=== PATIENT | female | born 1940 | race Caucasian/White ===

== ENCOUNTER 2016-06-18 16:32 | Inpatient (IN) | payer OTHER, BC ==
[~2016-06-18] VITALS: Ht 165.1 cm; Wt 76.0 kg
[~2016-06-18 16:32] MED LIST: ADULT LOW DOSE81 M1 PO; ADVAIR 250/501 DISK IH; ADVAIR 500/501 DISK IH; ALBUTEROL SULF8.5 GM IH; ALKA-SELTZER G1 EAC1 PO; AUGMENTIN875 MG PO; B-121000 MC2 PO; CALCIUM 600 +1 EAC1 PO; CALCIUM 600 +1 EAC3 PO; CALCIUM 600 +1 EAC4 PO; CALCIUM 600 +1 EAC9 PO; CALCIUM 600+D1 EAC1 PO; CALCIUM500 M4 PO; CEFTIN500 MG PO; CEFUROXIME500 MG PO; CENTRUM SILVER1 EAC3 PO; CYANOCOBALAM1000 MCG PO; CYANOCOBALAMI100 MCG PO; DIOVAN80 MG PO; DYAZIDE, MA1 CAPSULE PO; DuoNeb IH; Dyazide, Maxzide 37. PO; EFFIENT10 MG PO; GLUCOPHAGE500 MG PO; HUMALOG100 UNIT/2 SC; IBUPROFEN800 MG PO; INDOCIN50 MG PO; INDOMETHACIN50 MG PO; LANSOPRAZOLE30 MG PO; LANTUS 10100 UNITS/ SC; LANTUS 3 M100 UNITS1 SC; LANTUS100 UNIT/1 SQ; LASIX20 MG PO; LEXAPRO10 MG PO; LIDODERM 5% P1 PATCH TD; LIPITOR10 MG PO; LISINOPRIL10 MG PO; LOPRESSOR50 MG PO; LOW DOSE ASPIRI81 M1 PO; LOW DOSE ASPIRI81 M2 PO; Lopressor PO; MORGIDOX100 MG PO; MULTIVITAMIN1 EAC2 PO; MYRBETRIQ50 MG PO; NOVOLOG 10100 UNITS/ SC; NOVOLOG PE100 UNITS/ SC; NOVOLOG100 UNIT/2 SQ; PRAVASTATIN SOD10 MG PO; PREDNISONE10 MG PO; PREDNISONE20 MG PO; PREVACID30 MG PO; PROTONIX40 MG PO; PROVENTIL HFA6.7 GM IH; PROVENTIL,2.5 MG/0.5 AEROSOL; Proventil,Ventolin H IH; REQUIP1 MG PO; ROPINIROLE HC0.25 MG PO; Rocephin IV; SENNA8.6 M1 PO; SENNA8.6 MG PO; SENOKOT,SENN1 TABLET PO; SINGULAIR10 MG PO; SPIRIVA1 INHALATI IH; STOOL SOFTENER100 MG PO; Senokot S,Pericolace PO; THEO-24 100 MG100 MG PO; THEO-24400 MG PO; THEOPHYLLINE400 MG PO; THERAGRAN1 TABLET PO; TRAMADOL HCL50 MG PO; TYLENOL REGULA325 MG PO; VENTOLIN HFA18 GM IH; VITAMIN B-1250 MC3 PO; VITAMIN B-6100 MG PO; VITAMIN B12 100MCG PO; VITAMIN B12 PO; VITAMIN B12-FO1 EACH PO; VITAMIN B6 PO; VITAMIN D3400 UNI1 PO; VITAMIN D400 UNI1 PO; Vancomycin IV; Vicodin,Norco 5/325 PO; Vitamin D PO; ZESTRIL2.5 MG PO; ZOCOR10 MG PO; Zocor PO
[2016-06-18 17:56] LABS: EOSINOPHIL (%) 0.7 % (0-5); EOSINOPHIL COUNT 0.1 K/uL (0-0.3); HEMATOCRIT 40.1 % (36.0-46.0); IMMATURE GRANULOCYTE (%) 1.5 % (0.0-0.7); MCH 26.9 PG (29.0-34.0); MCHC 32.4 G/DL (30.0-36.0); MEAN PLAT.VOLUME 11.1 uM^3 (9.5-12.4); MONOCYTE COUNT 0.7 K/uL (0-0.8); NEUTROPHIL (%) 77.1 % (45-76); PLATELET COUNT 283 K/uL (156-360); RBC DIS.WIDTH-CV 15.3 % (11.8-14.6); RBC DIS.WIDTH-SD 46.1 % (39-53); RED BLOOD COUNT 4.83 M/uL (3.80-5.20)
[2016-06-18 18:02] LABS: CHLORIDE 103 mEq/L (99-109); POTASSIUM 4.2 mEq/L (3.7-5.4); SODIUM 142 mEq/L (136-147)
[2016-06-18 18:04] LABS: GLUCOSE 248 mg/dL (70-99)
[2016-06-18 18:05] LABS: ANION GAP 15 MEQ/L (2-14)
[2016-06-18 18:06] LABS: TOTAL BILIRUBIN 0.4 mg/dL (0.0-1.0)
[2016-06-18 18:07] LABS: ALKALINE PHOSPHATASE 82 IU/L (3-129)
[2016-06-18 18:08] LABS: GFR ESTIMATE (CALCULATED) 51 mL/min/
[2016-06-18 18:09] LABS: UREA NITROGEN (BUN) 34 mg/dL (9-23)
[2016-06-18 18:13] LABS: TROP-I INTERPRETATION NEGATIVE; TROPONIN-I 0.05 ng/mL (0.0-0.30)
[2016-06-18] MEDS ORDERED: BENICAR5 MG PO (18:55)
[2016-06-18] MEDS ORDERED: PRAVACHOL10 MG PO (18:55)
[2016-06-18] MEDS ORDERED: LYRICA50 MG PO (18:55)
[2016-06-18] MEDS ORDERED: PROVENTIL,2.5 MG/3 M IH (18:56)
[2016-06-18 19:27] LABS: INTER. NORMALIZED RATIO 1.1; PTT 26.8 (25-32)
[2016-06-18 22:15] VITALS: BP 157/76
[2016-06-18 22:46] LABS: POINT-OF-CARE METER ID UU14174216
[2016-06-19] VITALS (7 sets, daily range): BP systolic 112–168; BP diastolic 56–80
[2016-06-19 01:53] LABS: METH RESISTANT S AUREUS PCR NEGATIVE (NEGATIVE)
[2016-06-19 02:06] LABS: PROBE CHECK PASS; SPECIMEN PROCESSING CONTROL PASS
[2016-06-19 02:41] LABS: TROP-I INTERPRETATION NEGATIVE; TROPONIN-I 0.08 ng/mL (0.0-0.30)
[2016-06-19 09:11] LABS: HEMATOCRIT 42.3 % (36.0-46.0); MCHC 31.4 G/DL (30.0-36.0); MEAN PLAT.VOLUME 11.3 uM^3 (9.5-12.4); PLATELET COUNT 273 K/uL (156-360); RBC DIS.WIDTH-CV 15.8 % (11.8-14.6); RBC DIS.WIDTH-SD 49.2 % (39-53); RED BLOOD COUNT 4.92 M/uL (3.80-5.20); WHITE BLOOD COUNT 10.7 K/uL (4.1-10.2)
[2016-06-19 09:34] LABS: ANION GAP 11 MEQ/L (2-14); CHLORIDE 105 MEQ/L (99-109); GFR ESTIMATE (CALCULATED) > 59 mL/min/; POTASSIUM 3.6 MEQ/L (3.7-5.4); SAMPLE HEMOLYSIS CHECK 0; SAMPLE ICTERIC CHECK 0; SAMPLE LIPEMIA CHECK 0; SODIUM 146 MEQ/L (136-147); UREA NITROGEN (BUN) 24 mg/dL (9-23)
[2016-06-19 09:35] LABS: GLUCOSE 46 mg/dL (70-99)
[2016-06-19 09:36] LABS: TROP-I INTERPRETATION NEGATIVE; TROPONIN-I 0.12 ng/mL (0.0-0.30)
[2016-06-20] VITALS: BP 139/71
[2016-06-20 00:10] VITALS: BP 119/56
[2016-06-20 04:57] VITALS: BP 126/55
[2016-06-20 09:00] VITALS: BP 123/88
[2016-06-20 09:13] LABS: ANION GAP 12 MEQ/L (2-14); CHLORIDE 102 MEQ/L (99-109); GFR ESTIMATE (CALCULATED) 46 mL/min/; SAMPLE HEMOLYSIS CHECK 0; SAMPLE ICTERIC CHECK 0; SAMPLE LIPEMIA CHECK 0; SODIUM 140 MEQ/L (136-147); UREA NITROGEN (BUN) 35 mg/dL (9-23)
[2016-06-20 09:14] LABS: GLUCOSE 323 mg/dL (70-99); POTASSIUM 4.8 MEQ/L (3.7-5.4)
[2016-06-20 12:00] VITALS: BP 157/67
[2016-06-20 19:40] VITALS: BP 129/81
[2016-06-21] VITALS (8 sets, daily range): BP systolic 96–166; BP diastolic 55–86
[2016-06-21 06:33] LABS: HEMATOCRIT 39.1 % (36.0-46.0); MCH 26.8 PG (29.0-34.0); MCHC 31.5 G/DL (30.0-36.0); MCV 85.2 FL (83-99); MEAN PLAT.VOLUME 11.9 uM^3 (9.5-12.4); PLATELET COUNT 259 K/uL (156-360); RBC DIS.WIDTH-CV 15.7 % (11.8-14.6); RED BLOOD COUNT 4.59 M/uL (3.80-5.20); WHITE BLOOD COUNT 13.9 K/uL (4.1-10.2)
[2016-06-21 07:08] LABS: ANION GAP 9 MEQ/L (2-14); CHLORIDE 107 MEQ/L (99-109); GFR ESTIMATE (CALCULATED) 42 mL/min/; GLUCOSE 227 mg/dL (70-99); POTASSIUM 4.2 MEQ/L (3.7-5.4); SAMPLE HEMOLYSIS CHECK 0; SAMPLE ICTERIC CHECK 0; SAMPLE LIPEMIA CHECK 0; SODIUM 141 MEQ/L (136-147); UREA NITROGEN (BUN) 39 mg/dL (9-23)
[2016-06-21 08:44] LABS: POINT-OF-CARE METER ID UU13113781
[2016-06-21 10:43] LABS: POINT-OF-CARE METER ID UU13113781
[2016-06-21 16:01] LABS: POINT-OF-CARE METER ID UU13113781
[2016-06-22 05:00] VITALS: BP 152/85
[2016-06-22 06:17] LABS: EOSINOPHIL (%) 0.2 % (0-5); HEMATOCRIT 41.7 % (36.0-46.0); IMMATURE GRANULOCYTE (%) 1.4 % (0.0-0.7); IMMATURE GRANULOCYTE COUNT 0.2 K/uL; LYMPHOCYTE COUNT 1.5 K/uL (1.0-2.8); MCH 27.1 PG (29.0-34.0); MCHC 31.9 G/DL (30.0-36.0); MCV 84.9 FL (83-99); MEAN PLAT.VOLUME 11.5 uM^3 (9.5-12.4); MONOCYTE (%) 6.2 % (3-12); MONOCYTE COUNT 0.7 K/uL (0-0.8); NEUTROPHIL (%) 79.7 % (45-76); NEUTROPHIL COUNT 9.6 K/uL (1.8-6.4); PLATELET COUNT 242 K/uL (156-360); RBC DIS.WIDTH-CV 15.9 % (11.8-14.6); RBC DIS.WIDTH-SD 48.6 % (39-53); RED BLOOD COUNT 4.91 M/uL (3.80-5.20)
[2016-06-22 06:46] LABS: ANION GAP 9 MEQ/L (2-14); CHLORIDE 106 MEQ/L (99-109); GFR ESTIMATE (CALCULATED) 31 mL/min/; GLUCOSE 158 mg/dL (70-99); POTASSIUM 4.7 MEQ/L (3.7-5.4); SAMPLE HEMOLYSIS CHECK 0; SAMPLE ICTERIC CHECK 0; SAMPLE LIPEMIA CHECK 0; SODIUM 142 MEQ/L (136-147); UREA NITROGEN (BUN) 45 mg/dL (9-23)
[2016-06-22 07:30] VITALS: BP 113/65
[2016-06-22 11:16] LABS: UR CREATININE CONCENTRATION 45.9 MG/DL
[2016-06-22 12:01] VITALS: BP 143/65
[2016-06-22 19:00] VITALS: BP 119/56
[2016-06-22 23:52] VITALS: BP 126/58
[2016-06-23 03:15] VITALS: BP 138/67
[2016-06-23 03:25] LABS: POINT-OF-CARE METER ID UU13113698
[2016-06-23 05:17] LABS: POINT-OF-CARE METER ID UU13113698
[2016-06-23 06:48] LABS: ANION GAP 10 MEQ/L (2-14); CHLORIDE 102 MEQ/L (99-109); GFR ESTIMATE (CALCULATED) 33 mL/min/; GLUCOSE 287 mg/dL (70-99); POTASSIUM 5.2 MEQ/L (3.7-5.4); SAMPLE HEMOLYSIS CHECK 0; SAMPLE ICTERIC CHECK 0; SAMPLE LIPEMIA CHECK 0; SODIUM 139 MEQ/L (136-147); UREA NITROGEN (BUN) 49 mg/dL (9-23)
[2016-06-23 07:48] LABS: POINT-OF-CARE METER ID UU14174216; POINT-OF-CARE USER ID NUTSLF44
[2016-06-23 08:59] VITALS: BP 154/78
[2016-06-23 11:24] LABS: HEMATOCRIT 40.8 % (36.0-46.0); MCH 26.1 PG (29.0-34.0); MCHC 30.9 G/DL (30.0-36.0); MCV 84.6 FL (83-99); MEAN PLAT.VOLUME 11.9 uM^3 (9.5-12.4); PLATELET COUNT 251 K/uL (156-360); RBC DIS.WIDTH-CV 16.1 % (11.8-14.6); RED BLOOD COUNT 4.82 M/uL (3.80-5.20); WHITE BLOOD COUNT 11.4 K/uL (4.1-10.2)
[2016-06-23 11:38] LABS: POINT-OF-CARE METER ID UU14174216; POINT-OF-CARE USER ID NUTSLF44
[2016-06-23 11:44] LABS: EOSINOPHIL (%) 0.1 % (0-5); IMMATURE GRANULOCYTE (%) 1.5 % (0.0-0.7); IMMATURE GRANULOCYTE COUNT 0.2 K/uL; LYMPHOCYTE COUNT 1.2 K/uL (1.0-2.8); MONOCYTE (%) 7.9 % (3-12); MONOCYTE COUNT 0.9 K/uL (0-0.8); NEUTROPHIL (%) 80.1 % (45-76); NEUTROPHIL COUNT 9.2 K/uL (1.8-6.4)
[2016-06-23 11:51] LABS: POINT-OF-CARE METER ID UU13113698
[2016-06-23 16:20] VITALS: BP 148/72
[2016-06-23 17:38] LABS: POINT-OF-CARE METER ID UU14174216; POINT-OF-CARE USER ID NUTSLF44
[2016-06-23 19:30] VITALS: BP 111/56
[2016-06-23 21:07] LABS: POINT-OF-CARE METER ID UU14174216
[2016-06-23 23:30] VITALS: BP 128/66
[2016-06-24 03:56] VITALS: BP 131/76
[2016-06-24 04:15] LABS: ADD MIUA? NO; BILIRUBIN NEGATIVE; BLOOD NEGATIVE; COLOR YELLOW ((YELLOW)); GLUCOSE (STRIP) 250; KETONES NEGATIVE; LEUKOCYTES NEGATIVE; NITRITE NEGATIVE; PH, URINE 6.5 (5-8); PROTEIN (STRIP) NEGATIVE; SPECIFIC GRAVITY 1.014 (1.000-1.030); UROBILINOGEN 0.2 MG/DL (0.2-1.0)
[2016-06-24 06:47] LABS: HEMATOCRIT 39.3 % (36.0-46.0); MCH 26.2 PG (29.0-34.0); MCV 84.5 FL (83-99); MEAN PLAT.VOLUME 11.4 uM^3 (9.5-12.4); PLATELET COUNT 242 K/uL (156-360); RBC DIS.WIDTH-CV 16.4 % (11.8-14.6); RBC DIS.WIDTH-SD 49.4 % (39-53); RED BLOOD COUNT 4.65 M/uL (3.80-5.20); WHITE BLOOD COUNT 12.8 K/uL (4.1-10.2)
[2016-06-24 07:12] LABS: ANION GAP 7 MEQ/L (2-14); CHLORIDE 105 MEQ/L (99-109); GFR ESTIMATE (CALCULATED) 36 mL/min/; GLUCOSE 233 mg/dL (70-99); POTASSIUM 5.6 MEQ/L (3.7-5.4); SAMPLE HEMOLYSIS CHECK 0; SAMPLE ICTERIC CHECK 0; SAMPLE LIPEMIA CHECK 0; SODIUM 138 MEQ/L (136-147); UREA NITROGEN (BUN) 48 mg/dL (9-23)
[2016-06-24 07:19] VITALS: BP 138/68
[2016-06-24 07:23] LABS: EOSINOPHIL (%) 0.1 % (0-5); IMMATURE GRANULOCYTE (%) 1.6 % (0.0-0.7); IMMATURE GRANULOCYTE COUNT 0.2 K/uL; LYMPHOCYTE COUNT 0.9 K/uL (1.0-2.8); MONOCYTE (%) 5.2 % (3-12); MONOCYTE COUNT 0.7 K/uL (0-0.8); NEUTROPHIL (%) 85.8 % (45-76)
[2016-06-24 07:36] LABS: POINT-OF-CARE METER ID UU13113698
[2016-06-24 11:31] LABS: POINT-OF-CARE METER ID UU13113698
[2016-06-24 11:55] VITALS: BP 146/66
[2016-06-24 15:16] VITALS: BP 161/67
[2016-06-25] VITALS: BP 168/74
[2016-06-25 04:00] VITALS: BP 145/70
[2016-06-25 06:41] LABS: HEMATOCRIT 41.6 % (36.0-46.0); MCH 27.3 PG (29.0-34.0); MCHC 32.2 G/DL (30.0-36.0); MCV 84.7 FL (83-99); MEAN PLAT.VOLUME 12.1 uM^3 (9.5-12.4); PLATELET COUNT 274 K/uL (156-360); RBC DIS.WIDTH-CV 16.4 % (11.8-14.6); RBC DIS.WIDTH-SD 49.4 % (39-53); RED BLOOD COUNT 4.91 M/uL (3.80-5.20); WHITE BLOOD COUNT 13.7 K/uL (4.1-10.2)
[2016-06-25 07:12] LABS: ANION GAP 10 MEQ/L (2-14); CHLORIDE 105 MEQ/L (99-109); GFR ESTIMATE (CALCULATED) 46 mL/min/; GLUCOSE 227 mg/dL (70-99); POTASSIUM 5.2 MEQ/L (3.7-5.4); SAMPLE HEMOLYSIS CHECK 0; SAMPLE ICTERIC CHECK 0; SAMPLE LIPEMIA CHECK 0; SODIUM 141 MEQ/L (136-147); UREA NITROGEN (BUN) 39 mg/dL (9-23)
[2016-06-25 08:03] LABS: POINT-OF-CARE METER ID UU13113698
[2016-06-25 08:32] VITALS: BP 140/75
[2016-06-25 11:21] LABS: POINT-OF-CARE METER ID UU13113698
[2016-06-25 12:40] VITALS: BP 40/90
[2016-06-25] MEDS ORDERED: CARDIZEM CD,CA240 MG PO (12:40)
[2016-06-25] MEDS ORDERED: ELIQUIS5 MG PO (12:40)
[2016-06-28 10:34] LABS: POINT-OF-CARE METER ID UU13113698
[2016-06-28 10:36] LABS: POINT-OF-CARE METER ID UU13113781
== END 2016-06-25 15:29 | disposition home or self-care (01) | DRG 189 ==
LOC: EME 16:32 → EDOF 21:02 → 4EAST 21:02
PROVIDERS: Emergency Medicine; Hospitalist; Internal Medicine; Internal Medicine Nephrology
DX: J96.21 Acute and chronic respiratory failure with hypoxia (principal); J18.9 Pneumonia, unspecified organism; N17.9 Acute kidney failure, unspecified; J44.1 Chronic obstructive pulmonary disease with (acute) exacerbation; I48.91 Unspecified atrial fibrillation; E86.0 Dehydration; I25.10 Atherosclerotic heart disease of native coronary artery without angina pectoris; J96.11 Chronic respiratory failure with hypoxia; E11.65 Type 2 diabetes mellitus with hyperglycemia; I45.10 Unspecified right bundle-branch block; F32.9 Major depressive disorder, single episode, unspecified; G62.9 Polyneuropathy, unspecified; R00.0 Tachycardia, unspecified; E78.5 Hyperlipidemia, unspecified; I35.0 Nonrheumatic aortic (valve) stenosis; J40 Bronchitis, not specified as acute or chronic; E11.22 Type 2 diabetes mellitus with diabetic chronic kidney disease; N18.3 Chronic kidney disease, stage 3 (moderate); E87.5 Hyperkalemia; I13.10 Hypertensive heart and chronic kidney disease without heart failure, with stage 1 through stage 4 chronic kidney disease, or unspecified chronic kidney disease; J98.09 Other diseases of bronchus, not elsewhere classified; Z85.038 Personal history of other malignant neoplasm of large intestine; Z99.81 Dependence on supplemental oxygen; Z79.82 Long term (current) use of aspirin; Z95.5 Presence of coronary angioplasty implant and graft
CPT/HCPCS: 71010; 71020; 71275; 76770; 80048; 80053; 81003; 82570; 82948; 83880; 83935; 84300; 84443; 84484; 85025; 85027; 85610; 85730; 87641; 93005; 94640; 94640 76; 94760; 94799; 99202; 99281; 99285; J1815; J1940; J1956; J7030; J7512

== ENCOUNTER 2016-06-26 11:28 | Inpatient (IN) | payer OTHER, BC ==
[~2016-06-26] VITALS: Ht 165.1 cm; Wt 75.5 kg
[~2016-06-26 11:28] MED LIST changes: +BENICAR5 MG PO; +CARDIZEM CD,CA240 MG PO; +ELIQUIS5 MG PO; +LYRICA50 MG PO; +PRAVACHOL10 MG PO; +PROVENTIL,2.5 MG/3 M IH
[2016-06-26 12:05] LABS: EOSINOPHIL (%) 0.1 % (0-5); HEMATOCRIT 42.2 % (36.0-46.0); IMMATURE GRANULOCYTE (%) 0.7 % (0.0-0.7); IMMATURE GRANULOCYTE COUNT 1.8 K/uL; LYMPHOCYTE COUNT 0.7 K/uL (1.0-2.8); MCH 26.9 PG (29.0-34.0); MCHC 32.5 G/DL (30.0-36.0); MCV 82.9 FL (83-99); MEAN PLAT.VOLUME 11.4 uM^3 (9.5-12.4); MONOCYTE (%) 4.8 % (3-12); MONOCYTE COUNT 1.2 K/uL (0-0.8); NEUTROPHIL (%) 91.7 % (45-76); NEUTROPHIL COUNT 22.8 K/uL (1.8-6.4); PLATELET COUNT 264 K/uL (156-360); RBC DIS.WIDTH-CV 16.3 % (11.8-14.6); RBC DIS.WIDTH-SD 48.8 % (39-53); RED BLOOD COUNT 5.09 M/uL (3.80-5.20)
[2016-06-26 12:06] LABS: WHITE BLOOD COUNT 24.9 K/uL (4.1-10.2)
[2016-06-26 12:12] LABS: CHLORIDE 105 mEq/L (99-109); POTASSIUM 5.2 mEq/L (3.7-5.4); SODIUM 141 mEq/L (136-147)
[2016-06-26 12:15] LABS: ANION GAP 11 MEQ/L (2-14); GLUCOSE 86 mg/dL (70-99)
[2016-06-26 12:16] LABS: INTER. NORMALIZED RATIO 1.1; PROTHROMBIN TIME 10.9 (9.2-11.2); PTT 28.7 (25-32)
[2016-06-26 12:17] LABS: GFR ESTIMATE (CALCULATED) 42 mL/min/
[2016-06-26 12:18] LABS: UREA NITROGEN (BUN) 41 mg/dL (9-23)
[2016-06-26 12:20] LABS: TROP-I INTERPRETATION INDETERMINATE; TROPONIN-I 0.35 ng/mL (0.0-0.30)
[2016-06-26 12:42] LABS: HEMATOLOGY COMMENT 1 SMEAR COMPATIBLE; USER ID LYM
[2016-06-26 14:06] LABS: MAGNESIUM 1.6 mg/dL (1.3-2.7)
[2016-06-26 15:51] LABS: POINT-OF-CARE METER ID UU13113747
[2016-06-26 17:05] VITALS: BP 99/64
[2016-06-26 18:52] LABS: ADD MIUA? NO; BILIRUBIN NEGATIVE; BLOOD NEGATIVE; COLOR YELLOW ((YELLOW)); GLUCOSE (STRIP) NEGATIVE; KETONES NEGATIVE; LEUKOCYTES NEGATIVE; NITRITE NEGATIVE; PH, URINE 5.5 (5-8); PROTEIN (STRIP) NEGATIVE; SPECIFIC GRAVITY 1.006 (1.000-1.030); UCUL ADDED? NO; UROBILINOGEN 0.2 MG/DL (0.2-1.0)
[2016-06-26 19:20] LABS: TROP-I INTERPRETATION INDETERMINATE; TROPONIN-I 0.41 ng/mL (0.0-0.30)
[2016-06-26 20:48] VITALS: BP 113/65
[2016-06-27] VITALS (8 sets, daily range): BP systolic 97–198; BP diastolic 44–58
[2016-06-27 01:08] LABS: TROP-I INTERPRETATION NEGATIVE; TROPONIN-I 0.25 ng/mL (0.0-0.30)
[2016-06-27 07:38] LABS: MCH 27.3 PG (29.0-34.0); MCV 85.3 FL (83-99); MEAN PLAT.VOLUME 11.7 uM^3 (9.5-12.4); PLATELET COUNT 213 K/uL (156-360); RBC DIS.WIDTH-CV 16.6 % (11.8-14.6); RBC DIS.WIDTH-SD 51.1 % (39-53); RED BLOOD COUNT 4.69 M/uL (3.80-5.20)
[2016-06-27 07:59] LABS: WHITE BLOOD COUNT 14.3 K/uL (4.1-10.2)
[2016-06-27 08:08] LABS: ANION GAP 8 MEQ/L (2-14); CHLORIDE 103 MEQ/L (99-109); GFR ESTIMATE (CALCULATED) 46 mL/min/; SAMPLE HEMOLYSIS CHECK 0; SAMPLE ICTERIC CHECK 0; SAMPLE LIPEMIA CHECK 0; SODIUM 140 MEQ/L (136-147); UREA NITROGEN (BUN) 43 mg/dL (9-23)
[2016-06-27 08:16] LABS: GLUCOSE 45 mg/dL (70-99)
[2016-06-27 08:24] LABS: POINT-OF-CARE METER ID UU13113698
[2016-06-27 10:51] LABS: POINT-OF-CARE METER ID UU13113698
[2016-06-28 04:50] VITALS: BP 118/54
[2016-06-28 06:57] LABS: HEMATOCRIT 37.1 % (36.0-46.0); MCH 26.7 PG (29.0-34.0); MCHC 31.3 G/DL (30.0-36.0); MCV 85.3 FL (83-99); MEAN PLAT.VOLUME 12.1 uM^3 (9.5-12.4); PLATELET COUNT 179 K/uL (156-360); RBC DIS.WIDTH-CV 16.3 % (11.8-14.6); RBC DIS.WIDTH-SD 50.4 % (39-53); RED BLOOD COUNT 4.35 M/uL (3.80-5.20)
[2016-06-28 07:55] LABS: ANION GAP 8 MEQ/L (2-14); CHLORIDE 99 MEQ/L (99-109); SAMPLE HEMOLYSIS CHECK 0; SAMPLE ICTERIC CHECK 0; SAMPLE LIPEMIA CHECK 0; SODIUM 135 MEQ/L (136-147); UREA NITROGEN (BUN) 55 mg/dL (9-23)
[2016-06-28 07:58] LABS: GFR ESTIMATE (CALCULATED) 26 mL/min/; GLUCOSE 340 mg/dL (70-99); POTASSIUM 5.6 MEQ/L (3.7-5.4)
[2016-06-28 08:45] VITALS: BP 130/62
[2016-06-28 11:45] VITALS: BP 128/60
[2016-06-28 12:58] LABS: CHLORIDE 103 mEq/L (99-109); POTASSIUM 4.6 mEq/L (3.7-5.4)
[2016-06-28 12:59] LABS: SODIUM 143 mEq/L (136-147)
[2016-06-28 13:01] LABS: ANION GAP 13 MEQ/L (2-14); GLUCOSE 166 mg/dL (70-99)
[2016-06-28 13:03] LABS: GFR ESTIMATE (CALCULATED) 29 mL/min/
[2016-06-28 13:04] LABS: UREA NITROGEN (BUN) 55 mg/dL (9-23)
[2016-06-28 19:25] VITALS: BP 145/68
[2016-06-28 21:41] LABS: POINT-OF-CARE METER ID UU13113698
[2016-06-28 23:00] VITALS: BP 137/60
[2016-06-29 04:26] VITALS: BP 141/67
[2016-06-29 06:52] LABS: HEMATOCRIT 39.4 % (36.0-46.0); MCH 27.3 PG (29.0-34.0); MCHC 31.5 G/DL (30.0-36.0); MCV 86.8 FL (83-99); MEAN PLAT.VOLUME 12.1 uM^3 (9.5-12.4); PLATELET COUNT 203 K/uL (156-360); RBC DIS.WIDTH-CV 16.4 % (11.8-14.6); RBC DIS.WIDTH-SD 52.2 % (39-53); RED BLOOD COUNT 4.54 M/uL (3.80-5.20); WHITE BLOOD COUNT 8.7 K/uL (4.1-10.2)
[2016-06-29 07:31] LABS: ANION GAP 11 MEQ/L (2-14); CHLORIDE 106 MEQ/L (99-109); GFR ESTIMATE (CALCULATED) 36 mL/min/; SAMPLE HEMOLYSIS CHECK 0; SAMPLE ICTERIC CHECK 0; SAMPLE LIPEMIA CHECK 0; SODIUM 142 MEQ/L (136-147); UREA NITROGEN (BUN) 51 mg/dL (9-23)
[2016-06-29 07:34] LABS: GLUCOSE 259 mg/dL (70-99); POTASSIUM 5.6 MEQ/L (3.7-5.4)
[2016-06-29 07:52] LABS: POINT-OF-CARE METER ID UU13113698
[2016-06-29 08:07] VITALS: BP 154/90
[2016-06-29] MEDS ORDERED: PREDNISONE20 MG PO (08:13)
[2016-06-29 11:28] VITALS: BP 142/76
[2016-06-29 15:59] VITALS: BP 145/70
[2016-06-29 16:08] LABS: POINT-OF-CARE METER ID UU13113698
[2016-06-29 19:36] VITALS: BP 142/66
[2016-06-29 23:21] VITALS: BP 111/67
[2016-06-30 03:35] VITALS: BP 136/85
[2016-06-30 07:06] LABS: ANION GAP 9 MEQ/L (2-14); CHLORIDE 105 MEQ/L (99-109); POTASSIUM 5.3 MEQ/L (3.7-5.4); SAMPLE HEMOLYSIS CHECK 0; SAMPLE ICTERIC CHECK 0; SAMPLE LIPEMIA CHECK 0; SODIUM 142 MEQ/L (136-147)
[2016-06-30 07:11] LABS: GFR ESTIMATE (CALCULATED) 42 mL/min/; GLUCOSE 182 mg/dL (70-99); UREA NITROGEN (BUN) 49 mg/dL (9-23)
[2016-06-30 07:24] LABS: EOSINOPHIL (%) 0.6 % (0-5); EOSINOPHIL COUNT 0.1 K/uL (0-0.3); HEMATOCRIT 41.9 % (36.0-46.0); IMMATURE GRANULOCYTE (%) 0.6 % (0.0-0.7); IMMATURE GRANULOCYTE COUNT 0.1 K/uL; MCH 27.4 PG (29.0-34.0); MCV 88.2 FL (83-99); MEAN PLAT.VOLUME 12.2 uM^3 (9.5-12.4); NEUTROPHIL COUNT 10.3 K/uL (1.8-6.4); PLATELET COUNT 250 K/uL (156-360); RBC DIS.WIDTH-CV 16.6 % (11.8-14.6); RBC DIS.WIDTH-SD 53.6 % (39-53); RED BLOOD COUNT 4.75 M/uL (3.80-5.20)
[2016-06-30 07:29] VITALS: BP 110/64
[2016-06-30 07:30] LABS: WHITE BLOOD COUNT 12.4 K/uL (4.1-10.2)
[2016-06-30 07:48] LABS: POINT-OF-CARE METER ID UU13113698
== END 2016-06-30 10:10 | disposition designated cancer center or children's hospital, planned readmission (85) | DRG 309 ==
LOC: EME → EDBD 11:28 → 4EAST 12:46 → EDOF 12:46 → 4EAST 16:01
PROVIDERS: Emergency Medicine; Hospitalist; Internal Medicine; Physician Assistant Medical
DX: I48.0 Paroxysmal atrial fibrillation (principal); J44.1 Chronic obstructive pulmonary disease with (acute) exacerbation; J96.11 Chronic respiratory failure with hypoxia; N17.9 Acute kidney failure, unspecified; E87.5 Hyperkalemia; I13.0 Hypertensive heart and chronic kidney disease with heart failure and stage 1 through stage 4 chronic kidney disease, or unspecified chronic kidney disease; Z99.81 Dependence on supplemental oxygen; I49.5 Sick sinus syndrome; I50.32 Chronic diastolic (congestive) heart failure; N18.3 Chronic kidney disease, stage 3 (moderate); F17.210 Nicotine dependence, cigarettes, uncomplicated; E78.5 Hyperlipidemia, unspecified; I25.10 Atherosclerotic heart disease of native coronary artery without angina pectoris; J45.909 Unspecified asthma, uncomplicated; I45.10 Unspecified right bundle-branch block; R26.2 Difficulty in walking, not elsewhere classified; R74.8 Abnormal levels of other serum enzymes; J45.901 Unspecified asthma with (acute) exacerbation; I35.0 Nonrheumatic aortic (valve) stenosis; E11.65 Type 2 diabetes mellitus with hyperglycemia; E11.22 Type 2 diabetes mellitus with diabetic chronic kidney disease; E66.9 Obesity, unspecified; Z68.27 Body mass index [BMI] 27.0-27.9, adult
CPT/HCPCS: 71010; 80048; 80048 91; 81003; 82948; 83735; 83880; 84484; 85025; 85027; 85610; 85730; 93005; 94640; 94640 76; 94799; 97530 GO; 97530 GP; 99202; 99281; 99285; J0696; J1815; J1940; J7030; J7050; J7512

== ENCOUNTER 2016-07-11 07:38 | Inpatient (IN) | payer OTHER, BC ==
[~2016-07-11] VITALS: Ht 160 cm; Wt 79.7 kg
[2016-07-11 07:59] LABS: BASE EXCESS 8.9 mEq/L (-3 to +3); BICARBONATE 35.3 mEq/L (22-26); CARBOXY HGB 1.8 % (0-5); METHEMOGLOBIN 1.1 % (0-1.5); PCO2 57 mm Hg (35-45); PO2 98 mm Hg (80-100)
[2016-07-11 08:00] LABS: COMMENTS - BLOOD GASES C+; CONTINUOUS POS AIRWAY PRESSURE 5 cm H2O; DEVICE MASK VENT; FI02 30 %; PRES. SUPPORT 10 CM/H2O; SITE RR; TOTAL RESP RATE 24 resp/min
[2016-07-11 08:14] LABS: EOSINOPHIL (%) 0.9 % (0-5); EOSINOPHIL COUNT 0.2 K/uL (0-0.3); IMMATURE GRANULOCYTE (%) 0.5 % (0.0-0.7); IMMATURE GRANULOCYTE COUNT 0.9 K/uL; LYMPHOCYTE COUNT 1.8 K/uL (1.0-2.8); MCH 27.1 PG (29.0-34.0); MCHC 30.5 G/DL (30.0-36.0); MCV 88.7 FL (83-99); MEAN PLAT.VOLUME 11.3 uM^3 (9.5-12.4); MONOCYTE (%) 7.4 % (3-12); MONOCYTE COUNT 1.3 K/uL (0-0.8); NEUTROPHIL (%) 80.5 % (45-76); NEUTROPHIL COUNT 13.8 K/uL (1.8-6.4); PLATELET COUNT 228 K/uL (156-360); RBC DIS.WIDTH-CV 16.7 % (11.8-14.6); RED BLOOD COUNT 4.17 M/uL (3.80-5.20)
[2016-07-11 08:15] LABS: WHITE BLOOD COUNT 17.2 K/uL (4.1-10.2)
[2016-07-11 08:33] LABS: INTER. NORMALIZED RATIO 1.2; PROTHROMBIN TIME 11.9 (9.2-11.2)
[2016-07-11 09:01] LABS: TROP-I INTERPRETATION NEGATIVE
[2016-07-11 09:06] LABS: ANION GAP 10 MEQ/L (2-14); CHLORIDE 100 MEQ/L (99-109); GFR ESTIMATE (CALCULATED) 39 mL/min/; POTASSIUM 4.4 MEQ/L (3.7-5.4); SAMPLE HEMOLYSIS CHECK 0; SAMPLE ICTERIC CHECK 0; SAMPLE LIPEMIA CHECK 0; SODIUM 146 MEQ/L (136-147); UREA NITROGEN (BUN) 43 mg/dL (9-23)
[2016-07-11 09:09] LABS: GLUCOSE 36 mg/dL (70-99)
[2016-07-11] MEDS ORDERED: PRAVACHOL40 MG PO (10:52)
[2016-07-11] MEDS ORDERED: CARDIZEM CD,CA240 MG PO (10:53)
[2016-07-11] MEDS ORDERED: SYMBICORT60 INHALAT IH (10:56)
[2016-07-11] MEDS ORDERED: LOPRESSOR50 MG PO (10:57)
[2016-07-11] MEDS ORDERED: OLMESARTAN MEDOX5 MG PO (10:57)
[2016-07-11] MEDS ORDERED: GLUCOPHAGE500 MG PO (10:58)
[2016-07-11] MEDS ORDERED: LASIX20 MG PO (10:58)
[2016-07-11 11:13] LABS: POINT-OF-CARE METER ID UU14100415
[2016-07-11] MEDS ORDERED: ELIQUIS5 MG PO (11:13)
[2016-07-11] MEDS ORDERED: ZESTRIL10 MG PO (11:18)
[2016-07-11 11:50] LABS: ADD MIUA? YES; BILIRUBIN NEGATIVE; BLOOD SMALL; COLOR YELLOW ((YELLOW)); GLUCOSE (STRIP) 50; KETONES NEGATIVE; LEUKOCYTES TRACE; NITRITE NEGATIVE; PROTEIN (STRIP) 30; SPECIFIC GRAVITY 1.012 (1.000-1.030); UROBILINOGEN 0.2 MG/DL (0.2-1.0)
[2016-07-11 11:56] LABS: BACTERIA NONE SEEN /HPF; EPITHELIAL CELLS 1+ /HPF; MUCUS TRACE /LPF; RED BLOOD CELLS 0-5 /HPF (0-5); UCUL ADDED? NO; WHITE BLOOD CELLS 0-5 /HPF (0-5)
[2016-07-11 17:26] VITALS: BP 125/55
[2016-07-11 18:37] LABS: TROP-I INTERPRETATION NEGATIVE; TROPONIN-I 0.08 ng/mL (0.0-0.30)
[2016-07-12 00:01] VITALS: BP 116/56
[2016-07-12 01:35] LABS: TROP-I INTERPRETATION NEGATIVE; TROPONIN-I 0.06 ng/mL (0.0-0.30)
[2016-07-12 04:00] VITALS: BP 147/66
[2016-07-12 07:54] VITALS: BP 137/68
[2016-07-12 08:40] LABS: HEMATOCRIT 28.7 % (36.0-46.0); MCH 27.4 PG (29.0-34.0); MCHC 31.4 G/DL (30.0-36.0); MCV 87.5 FL (83-99); MEAN PLAT.VOLUME 11.3 uM^3 (9.5-12.4); PLATELET COUNT 190 K/uL (156-360); RBC DIS.WIDTH-CV 16.9 % (11.8-14.6); RBC DIS.WIDTH-SD 53.9 % (39-53)
[2016-07-12 08:51] LABS: RED BLOOD COUNT 3.28 M/uL (3.80-5.20); WHITE BLOOD COUNT 9.8 K/uL (4.1-10.2)
[2016-07-12 08:59] LABS: ANION GAP 9 MEQ/L (2-14); CHLORIDE 99 MEQ/L (99-109); GFR ESTIMATE (CALCULATED) 39 mL/min/; POTASSIUM 4.8 MEQ/L (3.7-5.4); SAMPLE HEMOLYSIS CHECK 0; SAMPLE ICTERIC CHECK 0; SAMPLE LIPEMIA CHECK 0; SODIUM 141 MEQ/L (136-147); UREA NITROGEN (BUN) 45 mg/dL (9-23)
[2016-07-12 09:25] LABS: GLUCOSE 376 mg/dL (70-99)
[2016-07-12 11:35] VITALS: BP 132/69
[2016-07-12 15:13] VITALS: BP 135/70
[2016-07-12 19:49] VITALS: BP 134/67
[2016-07-13] VITALS: BP 147/69
[2016-07-13 04:00] VITALS: BP 145/68
[2016-07-13 06:08] LABS: METH RESISTANT S AUREUS PCR NEGATIVE (NEGATIVE)
[2016-07-13 06:11] LABS: PROBE CHECK PASS; SPECIMEN PROCESSING CONTROL PASS
[2016-07-13 07:25] VITALS: BP 155/71
[2016-07-13 08:05] LABS: POINT-OF-CARE METER ID UU14188625
[2016-07-13 09:07] LABS: POINT-OF-CARE METER ID UU14174225
[2016-07-13 11:38] VITALS: BP 131/62
[2016-07-13 11:47] LABS: POINT-OF-CARE METER ID UU14188625
[2016-07-13 15:27] VITALS: BP 135/62
[2016-07-13 17:02] LABS: POINT-OF-CARE METER ID UU14188625
[2016-07-13 20:00] VITALS: BP 172/73
[2016-07-14] VITALS (7 sets, daily range): BP systolic 156–180; BP diastolic 70–89
[2016-07-14 22:00] LABS: POINT-OF-CARE METER ID UU14188625
[2016-07-15 07:32] VITALS: BP 160/71
[2016-07-15 08:01] LABS: POINT-OF-CARE METER ID UU14174225
[2016-07-15 09:49] LABS: HEMATOCRIT 35.1 % (36.0-46.0); MCH 27.4 PG (29.0-34.0); MCHC 31.3 G/DL (30.0-36.0); MCV 87.3 FL (83-99); MEAN PLAT.VOLUME 11.1 uM^3 (9.5-12.4); RBC DIS.WIDTH-CV 16.9 % (11.8-14.6); RBC DIS.WIDTH-SD 52.9 % (39-53)
[2016-07-15 09:53] LABS: PLATELET COUNT 335 K/uL (156-360); RED BLOOD COUNT 4.02 M/uL (3.80-5.20); WHITE BLOOD COUNT 13.9 K/uL (4.1-10.2)
[2016-07-15 09:55] LABS: ANION GAP 12 MEQ/L (2-14); CHLORIDE 106 MEQ/L (99-109); GFR ESTIMATE (CALCULATED) 51 mL/min/; GLUCOSE 103 mg/dL (70-99); POTASSIUM 4.1 MEQ/L (3.7-5.4); SAMPLE HEMOLYSIS CHECK 0; SAMPLE ICTERIC CHECK 0; SAMPLE LIPEMIA CHECK 0; SODIUM 145 MEQ/L (136-147); UREA NITROGEN (BUN) 30 mg/dL (9-23)
[2016-07-15 11:25] VITALS: BP 166/67
[2016-07-15 11:28] LABS: POINT-OF-CARE METER ID UU14174225
[2016-07-15] MEDS ORDERED: PREDNISONE10 MG PO (14:20)
[2016-07-15] MEDS ORDERED: DOXYCYCLINE HY100 MG PO (14:20)
[2016-07-15] MEDS ORDERED: CEFTIN500 MG PO (14:20)
[2016-07-15 15:58] VITALS: BP 151/69
[2016-07-15 16:33] LABS: POINT-OF-CARE METER ID UU14188625
[2016-07-15 19:41] VITALS: BP 152/66
[2016-07-15 23:00] VITALS: BP 147/72
[2016-07-16 04:00] VITALS: BP 164/76
[2016-07-16 08:08] VITALS: BP 112/78
[2016-07-16 08:46] LABS: POINT-OF-CARE METER ID UU14174225
[2016-07-16 08:49] LABS: HEMATOCRIT 34.9 % (36.0-46.0); MCH 26.4 PG (29.0-34.0); MCHC 30.7 G/DL (30.0-36.0); MCV 86.2 FL (83-99); MEAN PLAT.VOLUME 10.4 uM^3 (9.5-12.4); PLATELET COUNT 283 K/uL (156-360); RED BLOOD COUNT 4.05 M/uL (3.80-5.20); WHITE BLOOD COUNT 11.5 K/uL (4.1-10.2)
[2016-07-16 09:22] LABS: ANION GAP 7 MEQ/L (2-14); CHLORIDE 103 MEQ/L (99-109); GFR ESTIMATE (CALCULATED) 57 mL/min/; POTASSIUM 4.4 MEQ/L (3.7-5.4); SAMPLE HEMOLYSIS CHECK 0; SAMPLE ICTERIC CHECK 0; SAMPLE LIPEMIA CHECK 0; SODIUM 141 MEQ/L (136-147); UREA NITROGEN (BUN) 32 mg/dL (9-23)
[2016-07-16 09:23] LABS: GLUCOSE 176 mg/dL (70-99)
[2016-07-16 09:27] LABS: POINT-OF-CARE METER ID UU14188625
[2016-07-16 11:10] VITALS: BP 118/78
[2016-07-16 12:12] LABS: POINT-OF-CARE METER ID UU14188625
[2016-07-16] MEDS ORDERED: LASIX20 MG PO (15:19)
== END 2016-07-16 16:59 | disposition home health service (06) | DRG 871 ==
LOC: EME 07:38 → EDOF 09:46 → 5SOUTH 09:46 → EDOF 10:13 → 5SOUTH 14:21
PROVIDERS: Emergency Medicine; Hospitalist; Internal Medicine
PROC: 5A09358 Assistance with Respiratory Ventilation, Less than 24 Consecutive Hours, Intermittent Positive Airway Pressure (ICD-10-PCS; principal; 2016-07-11)
DX: A41.9 Sepsis, unspecified organism (principal); J96.01 Acute respiratory failure with hypoxia; E87.2 Acidosis; I13.0 Hypertensive heart and chronic kidney disease with heart failure and stage 1 through stage 4 chronic kidney disease, or unspecified chronic kidney disease; I50.30 Unspecified diastolic (congestive) heart failure; J45.901 Unspecified asthma with (acute) exacerbation; J44.1 Chronic obstructive pulmonary disease with (acute) exacerbation; J44.0 Chronic obstructive pulmonary disease with (acute) lower respiratory infection; J20.9 Acute bronchitis, unspecified; E11.649 Type 2 diabetes mellitus with hypoglycemia without coma; R68.0 Hypothermia, not associated with low environmental temperature; E86.0 Dehydration; I35.0 Nonrheumatic aortic (valve) stenosis; N18.3 Chronic kidney disease, stage 3 (moderate); E11.22 Type 2 diabetes mellitus with diabetic chronic kidney disease; I48.0 Paroxysmal atrial fibrillation; R26.2 Difficulty in walking, not elsewhere classified; E78.5 Hyperlipidemia, unspecified; K21.9 Gastro-esophageal reflux disease without esophagitis; I45.10 Unspecified right bundle-branch block; E66.9 Obesity, unspecified; Z68.31 Body mass index [BMI] 31.0-31.9, adult; Z95.810 Presence of automatic (implantable) cardiac defibrillator; Z99.81 Dependence on supplemental oxygen; Z95.5 Presence of coronary angioplasty implant and graft; Z79.02 Long term (current) use of antithrombotics/antiplatelets; Z79.82 Long term (current) use of aspirin; Z79.4 Long term (current) use of insulin; Z85.038 Personal history of other malignant neoplasm of large intestine; Z87.891 Personal history of nicotine dependence; Z91.14 Patient's other noncompliance with medication regimen
CPT/HCPCS: 36600; 71010; 71020; 71250; 80048; 81003; 82803; 82948; 83605; 83880; 84484; 85025; 85027; 85610; 87040; 87070; 87077; 87186; 87205; 87641; 93005; 94002; 94640; 94640 76; 94667; 94760; 94799; 97530 GO; 99202; 99281; 99285; J1650; J1815; J1940; J2543; J2930; J7030; J7050; J7512

== ENCOUNTER 2017-11-29 17:07 | Inpatient (IN) | payer OTHER, BC ==
[~2017-11-29] VITALS: Ht 165.1 cm; Wt 75.1 kg
[~2017-11-29 17:07] MED LIST changes: +DOXYCYCLINE HY100 MG PO; +OLMESARTAN MEDOX5 MG PO; +PRAVACHOL40 MG PO; +SYMBICORT60 INHALAT IH; +ZESTRIL10 MG PO
[2017-11-29 18:34] LABS: HEMATOCRIT 44.5 % (36.0-46.0); HEMOGLOBIN 14.2 G/DL (11.9-15.5); MCH 27.5 PG (29.0-34.0); MCHC 31.9 G/DL (30.0-36.0); MCV 86.1 FL (83-99); PLATELET COUNT 187 K/uL (156-360); RBC DIS.WIDTH-CV 14.1 % (11.8-14.6); RBC DIS.WIDTH-SD 44.4 % (39-53); RED BLOOD COUNT 5.17 M/uL (3.80-5.20); WHITE BLOOD COUNT 17.7 K/uL (4.1-10.2)
[2017-11-29 18:46] LABS: CHLORIDE 101 mEq/L (99-109); POTASSIUM 4.9 mEq/L (3.7-5.4); SODIUM 139 mEq/L (136-147)
[2017-11-29 18:48] LABS: GLUCOSE 222 mg/dL (70-99)
[2017-11-29 18:52] LABS: CREATININE 1.8 mg/dL (0.6-1.3); GFR ESTIMATE (CALCULATED) 29 mL/min/
[2017-11-29 18:53] LABS: UREA NITROGEN (BUN) 35 mg/dL (9-23)
[2017-11-29] MEDS ORDERED: ACID REDUCER 1150 MG PO (22:18)
[2017-11-29] MEDS ORDERED: GLUCOPHAGE500 MG PO (22:18)
[2017-11-29] MEDS ORDERED: JANUVIA25 M1 PO (22:24)
[2017-11-29] MEDS ORDERED: CYANOCOBALAM1000 MCG PO (22:24)
[2017-11-29] MEDS ORDERED: SINGULAIR10 MG PO (22:24)
[2017-11-29] MEDS ORDERED: COLACE100 MG PO (22:25)
[2017-11-29] MEDS ORDERED: LO-DOSE ASPIRIN81 M1 PO (22:26)
[2017-11-30 01:03] LABS: HEMOGLOBIN 12.5 G/DL (11.9-15.5); MCH 27.8 PG (29.0-34.0); MCHC 32.1 G/DL (30.0-36.0); MCV 86.9 FL (83-99); PLATELET COUNT 162 K/uL (156-360); RBC DIS.WIDTH-CV 14.2 % (11.8-14.6); RBC DIS.WIDTH-SD 45.5 % (39-53); RED BLOOD COUNT 4.49 M/uL (3.80-5.20); WHITE BLOOD COUNT 15.2 K/uL (4.1-10.2)
[2017-11-30 02:35] VITALS: BP 134/60
[2017-11-30 07:37] LABS: HEMATOCRIT 39.3 % (36.0-46.0); HEMOGLOBIN 12.3 G/DL (11.9-15.5); MCV 87.1 FL (83-99)
[2017-11-30 07:59] VITALS: BP 116/56
[2017-11-30 08:15] LABS: CHLORIDE 106 MEQ/L (99-109); GLUCOSE 148 mg/dL (70-99); SODIUM 144 MEQ/L (136-147); UREA NITROGEN (BUN) 28 mg/dL (9-23)
[2017-11-30 08:22] LABS: CREATININE 1.2 MG/DL (0.6-1.3); GFR ESTIMATE (CALCULATED) 46 mL/min/
[2017-11-30 09:27] LABS: ALBUMIN 3.1 G/DL (3.2-4.8); ALKALINE PHOSPHATASE 74 IU/L (3-129); ALT (GPT) 8 IU/L (3-49); AST (GOT) 8 IU/L (2-34); DIRECT BILIRUBIN 0.3 mg/dL (0.0-0.3); TOTAL BILIRUBIN 0.7 MG/DL (0.0-1.0)
[2017-11-30 10:15] LABS: APPEARANCE CLEAR ((CLEAR)); BILIRUBIN NEGATIVE; BLOOD MODERATE; COLOR YELLOW ((YELLOW)); GLUCOSE (STRIP) 150; KETONES NEGATIVE; LEUKOCYTES MODERATE; NITRITE NEGATIVE; PROTEIN (STRIP) 30; SPECIFIC GRAVITY 1.009 (1.000-1.030); UROBILINOGEN 0.2 MG/DL (0.2-1.0)
[2017-11-30 10:38] LABS: BACTERIA NONE SEEN /HPF; EPITHELIAL CELLS RARE /HPF; MUCUS TRACE /LPF; UCUL ADDED? YES; WHITE BLOOD CELLS 20-30 /HPF (0-5)
[2017-11-30 11:25] VITALS: BP 121/70
[2017-11-30 15:55] LABS: HEMATOCRIT 42.5 % (36.0-46.0); HEMOGLOBIN 12.9 G/DL (11.9-15.5); MCV 87.8 FL (83-99)
[2017-11-30 16:48] VITALS: BP 159/71
[2017-11-30 19:48] VITALS: BP 120/57
[2017-11-30 23:52] VITALS: BP 125/62
[2017-12-01 00:50] LABS: HEMATOCRIT 39.9 % (36.0-46.0); HEMOGLOBIN 12.7 G/DL (11.9-15.5); MCV 87.1 FL (83-99)
[2017-12-01 04:03] VITALS: BP 139/58
[2017-12-01 07:40] LABS: BASOPHIL (%) 0.3 % (0-1); EOSINOPHIL (%) 2.5 % (0-5); EOSINOPHIL COUNT 0.2 K/uL (0-0.3); HEMATOCRIT 42.5 % (36.0-46.0); IMMATURE GRANULOCYTE (%) 0.3 % (0.0-0.7); LYMPHOCYTE (%) 9.5 % (15-42); LYMPHOCYTE COUNT 0.9 K/uL (1.0-2.8); MCH 26.7 PG (29.0-34.0); MCHC 30.6 G/DL (30.0-36.0); MCV 87.4 FL (83-99); MONOCYTE (%) 6.2 % (3-12); MONOCYTE COUNT 0.6 K/uL (0-0.8); NEUTROPHIL (%) 81.2 % (45-76); NEUTROPHIL COUNT 7.7 K/uL (1.8-6.4); PLATELET COUNT 152 K/uL (156-360); RBC DIS.WIDTH-SD 45.3 % (39-53); RED BLOOD COUNT 4.86 M/uL (3.80-5.20); WHITE BLOOD COUNT 9.5 K/uL (4.1-10.2)
[2017-12-01 07:44] LABS: ALBUMIN 3.4 G/DL (3.2-4.8); ALKALINE PHOSPHATASE 69 IU/L (3-129); ALT (GPT) 9 IU/L (3-49); AST (GOT) 9 IU/L (2-34); CHLORIDE 107 MEQ/L (99-109); CREATININE 0.9 MG/DL (0.6-1.3); DIRECT BILIRUBIN 0.1 mg/dL (0.0-0.3); GFR ESTIMATE (CALCULATED) > 59 mL/min/; SODIUM 145 MEQ/L (136-147); TOTAL PROTEIN 5.4 G/DL (6.4-8.3); UREA NITROGEN (BUN) 16 mg/dL (9-23)
[2017-12-01 07:47] LABS: GLUCOSE 77 mg/dL (70-99); TOTAL BILIRUBIN 0.5 MG/DL (0.0-1.0)
[2017-12-01 08:40] VITALS: BP 128/59
[2017-12-01 10:54] LABS: HEMOGLOBIN A1c (GLYCOHEMOGLOB) 7.2 % (Below 5.7)
[2017-12-01 12:38] VITALS: BP 124/60
[2017-12-01 15:32] VITALS: BP 180/66
[2017-12-01 19:24] VITALS: BP 168/80
[2017-12-02 00:18] VITALS: BP 155/72
[2017-12-02 03:48] VITALS: BP 112/74
[2017-12-02 07:27] LABS: CHLORIDE 107 MEQ/L (99-109); CREATININE 0.9 MG/DL (0.6-1.3); GFR ESTIMATE (CALCULATED) > 59 mL/min/; POTASSIUM 4.5 MEQ/L (3.7-5.4); SODIUM 143 MEQ/L (136-147); UREA NITROGEN (BUN) 13 mg/dL (9-23)
[2017-12-02 07:34] VITALS: BP 129/63
[2017-12-02 07:35] LABS: GLUCOSE 204 mg/dL (70-99)
[2017-12-02 07:43] LABS: BASOPHIL (%) 0.5 % (0-1); EOSINOPHIL (%) 3.4 % (0-5); EOSINOPHIL COUNT 0.3 K/uL (0-0.3); HEMATOCRIT 41.4 % (36.0-46.0); HEMOGLOBIN 12.8 G/DL (11.9-15.5); IMMATURE GRANULOCYTE (%) 0.4 % (0.0-0.7); LYMPHOCYTE (%) 13.1 % (15-42); MCH 26.9 PG (29.0-34.0); MCHC 30.9 G/DL (30.0-36.0); MCV 87.2 FL (83-99); MONOCYTE (%) 8.7 % (3-12); MONOCYTE COUNT 0.7 K/uL (0-0.8); NEUTROPHIL (%) 73.9 % (45-76); NEUTROPHIL COUNT 5.8 K/uL (1.8-6.4); PLATELET COUNT 180 K/uL (156-360); RBC DIS.WIDTH-CV 13.8 % (11.8-14.6); RBC DIS.WIDTH-SD 44.2 % (39-53); RED BLOOD COUNT 4.75 M/uL (3.80-5.20); WHITE BLOOD COUNT 7.9 K/uL (4.1-10.2)
[2017-12-02] MEDS ORDERED: CIPRO500 MG PO (09:35)
[2017-12-02] MEDS ORDERED: METRONIDAZOLE500 MG PO (09:35)
[2017-12-02 11:46] VITALS: BP 134/63
== END 2017-12-02 16:12 | disposition home or self-care (01) | DRG 392 ==
LOC: EME 17:07 → EDOF 11-30 00:13 → 2EAST 11-30 00:13 → CANRESERV 11-30 00:16 → ENRESERV 11-30 00:16 → 2EAST 11-30 02:15 → ENPENDDIS 12-02 10:28 → 2EAST 12-02 16:12
PROVIDERS: Hospitalist
DX: K52.9 Noninfective gastroenteritis and colitis, unspecified (principal); N17.9 Acute kidney failure, unspecified; E11.22 Type 2 diabetes mellitus with diabetic chronic kidney disease; I12.9 Hypertensive chronic kidney disease with stage 1 through stage 4 chronic kidney disease, or unspecified chronic kidney disease; N18.3 Chronic kidney disease, stage 3 (moderate); J44.9 Chronic obstructive pulmonary disease, unspecified; Z95.0 Presence of cardiac pacemaker; E78.5 Hyperlipidemia, unspecified; I25.10 Atherosclerotic heart disease of native coronary artery without angina pectoris; I48.2 Chronic atrial fibrillation; I35.0 Nonrheumatic aortic (valve) stenosis; I45.10 Unspecified right bundle-branch block; Z95.5 Presence of coronary angioplasty implant and graft; Z79.01 Long term (current) use of anticoagulants; K21.9 Gastro-esophageal reflux disease without esophagitis; Z90.49 Acquired absence of other specified parts of digestive tract; K62.5 Hemorrhage of anus and rectum
CPT/HCPCS: 71046; 74018; 74176; 80048; 80053; 80076; 81003; 82248; 82948; 83036; 85014; 85018; 85025; 85027; 86850; 86900; 86901; 87086; 87177; 87329; 87493; 94640; 94799; 99281; 99284; J0696; J1815; J7030; J7040; S0028; S0030